=== PATIENT | female | born 1940 | race Caucasian/White ===

== ENCOUNTER → 2018-11-29 | Outpatient (CLI) | payer OTHER ==
[~2018-11-29] MED LIST: CARDIZEM CD180 MG PO; DIOVAN 80 MG TA80 M1 PO; FISH OIL 1,001000 M2; FISH OIL 1,001000 M2 PO; FOLBIC RF TABL1 EACH; HYDROCODONE-AP1 EAC6 PO; LEVOTHYROXINE 0.1 MG PO; MULTIVITAMINS; ONDANSETRON HCL4 M2 PO; OXYBUTYNIN 5 MG5 M2 PO; PAXIL20 MG PO; PROTONIX40 M1 PO; ZOFRAN ODT4 MG PO
== END ==
LOC: M.RAD 14:15
DX: Z12.31 Encounter for screening mammogram for malignant neoplasm of breast (principal)

== ENCOUNTER → 2021-01-26 | Outpatient (CLI) | payer OTHER | LOC: M.RAD 14:26 | PROVIDERS: ATTEND Family Medicine | DX: Z12.31 Encounter for screening mammogram for malignant neoplasm of breast (principal); M81.0 Age-related osteoporosis without current pathological fracture; M85.88 Other specified disorders of bone density and structure, other site ==